=== PATIENT | female | born 2000 | race Caucasian/White ===

== ENCOUNTER 2018-01-26 07:00 | Day surgery (SDC) | payer MEDICAID ==
[~2018-01-26] VITALS: Ht 147.3 cm; Wt 102.5 kg
[2018-01-26] MEDS ORDERED: LIDOCAINE/EPI MPF 1%1:200000 30 ML VIAL INJ ONE (07:08)
[2018-01-26] MEDS ORDERED: PHENYLEPHRINE 1% 15 ML BTL NS ONE (07:09)
[2018-01-26] MEDS ORDERED: NEOMYCIN/POLYMYXIN/DEXAMETH OP 3.5 GM TUBE ONE (07:10)
[2018-01-26] MEDS ORDERED: NEOMYCIN/POLYMYXIN/BACITRACIN OIN 15 GM TUBE TP ONE (07:11)
[2018-01-26] MEDS ORDERED: ceFAZolin 1,000 MG VIAL ONE ×2 (08:00→08:30)
[2018-01-26] MEDS ORDERED: GLYCOPYRROLATE 0.2 MG/ML VIAL ONE (08:30)
[2018-01-26] MEDS ORDERED: ONDANSETRON 4 MG/2 ML VIAL ONE (08:30)
[2018-01-26] MEDS ORDERED: DESFLURANE 240 ML BTL INH ONE (08:30)
[2018-01-26] MEDS ORDERED: ROCURONIUM 50 MG/5 ML VIAL IV ONE (08:30)
[2018-01-26] MEDS ORDERED: PROPOFOL 200 MG/20 ML VIAL IV ONE (08:30)
[2018-01-26] MEDS ORDERED: DEXAMETHASONE 4 MG/ML VIAL ONE (08:30)
[2018-01-26] MEDS ORDERED: NEOSTIGMINE 1:1000 10 MG/10 ML VIAL ONE (08:30)
[2018-01-26] MEDS ORDERED: HYDROmorphone PFS 2 MG/ML SYR ONE (08:40)
[2018-01-26] MEDS ORDERED: fentaNYL 0.05 MG/ML VIAL ONE ×2 (08:40→10:01)
[2018-01-26] MEDS ORDERED: fentaNYL 0.05 MG/ML VIAL IVP PRN (09:15)
[2018-01-26] MEDS ORDERED: ONDANSETRON 4 MG/2 ML VIAL IVP PRN (09:15)
[2018-01-26] MEDS ORDERED: ACETAMIN/CODEINE 120/12MG-5ML 5 ML UDC PO PRN ×2 (09:20→09:40)
[2018-01-26] MEDS ORDERED: MEPERIDINE 50 MG/ML SYR IVP PRN ×2 (09:20→09:40)
[2018-01-26] MEDS ORDERED: guaiFENesin DM 200/20 MG-10 ML 10 ML UDC PO PRN ×2 (09:20→09:40)
[2018-01-26] MEDS ORDERED: PROMETHAZINE 25 MG/ML VIAL IVP PRN ×2 (09:20→09:40)
== END 2018-01-26 12:05 | disposition home or self-care (01) ==
LOC: MDS 07:00 → MMU 07:13 → MDS 12:05
PROVIDERS: ATTEND Otolaryngology
DX: J34.2 Deviated nasal septum (principal); J34.3 Hypertrophy of nasal turbinates; E66.01 Morbid (severe) obesity due to excess calories; Z68.42 Body mass index [BMI] 45.0-49.9, adult; G47.33 Obstructive sleep apnea (adult) (pediatric); K21.9 Gastro-esophageal reflux disease without esophagitis; Z83.3 Family history of diabetes mellitus; Z82.49 Family history of ischemic heart disease and other diseases of the circulatory system; Z98.890 Other specified postprocedural states; Z79.899 Other long term (current) drug therapy
CPT/HCPCS: 30140; 30520; 30999; 88304; 93005; J0690; J1100; J1170; J2001; J2405; J2704; J2710; J3010; J3490; J7120

== ENCOUNTER 2019-01-04 06:28 | Day surgery (SDC) | payer MEDICAID ==
[~2019-01-04] VITALS: Ht 149.9 cm; Wt 104.3 kg
[2019-01-04] MEDS ORDERED: PHENYLEPHRINE 1% 15 ML BTL NS ONE (07:47)
[2019-01-04] MEDS ORDERED: LIDOCAINE/EPI 1% 1:100000 20 ML VIAL INJ ONE (07:48)
[2019-01-04] MEDS ORDERED: NEOMYCIN/POLYMYXIN/BACITRACIN OIN 15 GM TUBE TP ONE (07:49)
[2019-01-04] MEDS ORDERED: PROPOFOL 200 MG/20 ML VIAL IV ONE (07:50)
[2019-01-04] MEDS ORDERED: SUCCINYLCHOLINE CHLORIDE 200 MG/10 ML VIAL IVP ONE (07:50)
[2019-01-04] MEDS ORDERED: ONDANSETRON 4 MG/2 ML VIAL ONE (07:50)
[2019-01-04] MEDS ORDERED: DEXAMETHASONE 10 MG/ML VIAL ONE ×2 (07:50→08:30)
[2019-01-04] MEDS ORDERED: KETOROLAC 30 MG/ML VIAL ONE (07:50)
[2019-01-04] MEDS ORDERED: SEVOFLURANE 250 ML BTL INH ONE (07:50)
[2019-01-04] MEDS ORDERED: LIDOCAINE/EPI MPF 1%1:200000 30 ML VIAL INJ ONE (07:58)
[2019-01-04] MEDS ORDERED: ceFAZolin 1,000 MG VIAL ONE (08:15)
[2019-01-04] MEDS ORDERED: MIDAZOLAM 2 MG/2 ML VIAL ONE (08:16)
[2019-01-04] MEDS ORDERED: fentaNYL 0.05 MG/ML VIAL ONE (08:17)
[2019-01-04] MEDS ORDERED: MEPERIDINE 50 MG/ML SYR ONE (08:17)
[2019-01-04] MEDS ORDERED: LACTATED RINGERS 1,000 ML IV SCH (08:39)
[2019-01-04] MEDS ORDERED: MEPERIDINE 25 MG/ML SYR IVP PRN (08:40)
[2019-01-04] MEDS ORDERED: diphenhydrAMINE 50 MG/ML VIAL IVP PRN (08:40)
[2019-01-04] MEDS ORDERED: ONDANSETRON 4 MG/2 ML VIAL IVP PRN (08:40)
[2019-01-04] MEDS ORDERED: HYDROmorphone 1 MG/ML AMP IVP PRN (08:40)
[2019-01-04] MEDS ORDERED: MEPERIDINE 50 MG/ML SYR IVP PRN (08:50)
[2019-01-04] MEDS ORDERED: ACETAMIN/CODEINE 120/12MG-5ML 5 ML UDC PO PRN (08:50)
[2019-01-04] MEDS ORDERED: guaiFENesin DM 200/20 MG-10 ML 10 ML UDC PO PRN (08:50)
[2019-01-04] MEDS ORDERED: PROMETHAZINE 25 MG/ML VIAL IVP PRN (08:50)
--- NOTE | 2019-01-04 09:03 | NUR ---
COOL AEROSOL AT 28%/ 7 LPM TO MASK SET UP TESTED ON AND FUNCTIONING WELL PLACED ON PATIENT AT THIS TIME FERNY/RN AT BEDSIDE AWARE
== END 2019-01-04 12:00 | disposition home or self-care (01) ==
LOC: MDS 06:28 → MMU 06:39 → MDS 12:00
PROVIDERS: ATTEND Otolaryngology
DX: J34.2 Deviated nasal septum (principal); J34.3 Hypertrophy of nasal turbinates; J45.909 Unspecified asthma, uncomplicated; Z98.890 Other specified postprocedural states; Z79.899 Other long term (current) drug therapy; Z83.3 Family history of diabetes mellitus; Z82.49 Family history of ischemic heart disease and other diseases of the circulatory system
CPT/HCPCS: 30140; 30520; 88304; J0330; J0690; J1100; J1885; J2001; J2250; J2405; J2704; J3010; J7120; J2175